=== PATIENT | female | born 2000 | race Two or more races ===

== ENCOUNTER → 2022-12-11 | Emergency (ER) | payer OTHER ==
[~2022-12-11] VITALS: Ht 165.1 cm; Wt 69.9 kg
== END | disposition left against medical advice (07) ==
LOC: ER 21:29
DX: S93.401A Sprain of unspecified ligament of right ankle, initial encounter (principal); S99.821A Other specified injuries of right foot, initial encounter; X58.XXXA Exposure to other specified factors, initial encounter; Y93.89 Activity, other specified; Y92.89 Other specified places as the place of occurrence of the external cause